=== PATIENT | male | born 1995 | race Caucasian/White ===

== ENCOUNTER 2018-02-12 17:23 | Emergency (ER) | payer BC, OTHER ==
[~2018-02-12] VITALS: Ht 175.3 cm; Wt 69.4 kg
--- NOTE | 2018-02-12 17:39 | ED Cough/URI ---
General Stated Complaint: ABD PAIN FOR THE PAST 24HRS Source: patient Exam Limitations: no limitations History of Present Illness Date Seen by Provider: Feb 12, 2018 Time Seen by Provider: 17:36 Initial Comments To ER with c/o abdomen feeling "odd" intermittently since last night. No fever or chills, no nausea or vomiting, no bowel changes such as diarrhea or constipation. No dysuria. At this time, he states he has zero pain. He describes the pain as suprapubic, sharp and "comes and goes". He also states that he feels some discomfort in his low back. Timing/Duration: just prior to arrival, intermittent Severity/Quality: mild Allergies and Home Medications Patient Home Medication List Home Medication List Reviewed: Yes Review of Systems Constitutional: see HPI; No chills, No fever EENTM: see HPI Respiratory: no symptoms reported Cardiovascular: no symptoms reported Gastrointestinal: abdominal pain; No nausea, No vomiting Genitourinary: no symptoms reported Musculoskeletal: no symptoms reported Skin: no symptoms reported Psychiatric/Neurological: No Symptoms Reported Hematologic/Lymphatic: No Symptoms Reported Immunological/Allergic: no symptoms reported Past Urkrrti-Jdafam-Bfxvwu Hx Patient Social History Recent Foreign Travel: Yes ([place],[facility]) Contact w/Someone Who Travel: Yes Physical Exam Vital Signs Vital Signs - First Documented 02/12/18 17:29 Temp 97.7 Pulse 80 Resp 17 B/P (MAP) 105/70 (82) O2 Delivery Room Air Capillary Refill : General Appearance: WD/WN, no apparent distress Eyes: Bilateral Eye Normal Inspection, Bilateral Eye PERRL, Bilateral Eye EOMI HEENT: PERRL/EOMI, normal ENT inspection Neck: non-tender, full range of motion Respiratory: no respiratory distress, no accessory muscle use Cardiovascular: regular rate, rhythm, no murmur Gastrointestinal: normal bowel sounds, non tender, soft; No abnormal bowel sounds, No distended, No guarding, No rebound, No tenderness Neurologic/Psychiatric: alert, normal mood/affect, oriented x 3 Skin: normal color Progress/Results/Core Measures Suspected Sepsis SIRS Temperature: Pulse: Respiratory Rate: Laboratory Tests 02/12/18 17:36: White Blood Count 7.1 Blood Pressure / Mean: Laboratory Tests 02/12/18 17:36: Creatinine 0.94, Platelet Count 234, Total Bilirubin 2.0H Results/Orders Lab Results Laboratory Tests Test 02/12/18 17:36 02/12/18 17:45 Range/Units White Blood Count 7.1 4.3-11.0 10^3/uL Red Blood Count 5.17 4.35-5.85 10^6/uL Hemoglobin 15.4 13.3-17.7 G/DL Hematocrit 43 40-54 % Mean Corpuscular Volume 83 80-99 FL Mean Corpuscular Hemoglobin 30 25-34 PG Mean Corpuscular Hemoglobin Concent 36 32-36 G/DL Red Cell Distribution Width 13.0 10.0-14.5 % Platelet Count 234 130-400 10^3/uL Mean Platelet Volume 11.4 H 7.4-10.4 FL Neutrophils (%) (Auto) 58 42-75 % Lymphocytes (%) (Auto) 35 12-44 % Monocytes (%) (Auto) 6 0-12 % Eosinophils (%) (Auto) 1 0-10 % Basophils (%) (Auto) 0 0-10 % Neutrophils # (Auto) 4.1 1.8-7.8 X 10^3 Lymphocytes # (Auto) 2.5 1.0-4.0 X 10^3 Monocytes # (Auto) 0.4 0.0-1.0 X 10^3 Eosinophils # (Auto) 0.1 0.0-0.3 10^3/uL Basophils # (Auto) 0.0 0.0-0.1 10^3/uL Sodium Level 141 135-145 MMOL/L Potassium Level 3.8 3.6-5.0 MMOL/L Chloride Level 105 98-107 MMOL/L Carbon Dioxide Level 24 21-32 MMOL/L Anion Gap 12 5-14 MMOL/L Blood Urea Nitrogen 14 7-18 MG/DL Creatinine 0.94 0.60-1.30 MG/DL Estimat Glomerular Filtration Rate > 60 BUN/Creatinine Ratio 15 Glucose Level 111 H 70-105 MG/DL Calcium Level 9.4 8.5-10.1 MG/DL Total Bilirubin 2.0 H 0.1-1.0 MG/DL Aspartate Amino Transf (AST/SGOT) 25 5-34 U/L Alanine Aminotransferase (ALT/SGPT) 13 0-55 U/L Alkaline Phosphatase 73 40-136 U/L C-Reactive Protein High Sensitivity 0.02 0.00-0.50 MG/DL Total Protein 7.5 6.4-8.2 GM/DL Albumin 4.8 H 3.2-4.5 GM/DL Lipase 46 8-78 U/L Urine Color YELLOW Urine Clarity CLEAR Urine pH 7 5-9 Urine Specific [place] 1.010 L 1.016-1.022 Urine Protein NEGATIVE NEGATIVE Urine Glucose (UA) NEGATIVE NEGATIVE Urine Ketones NEGATIVE NEGATIVE Urine Nitrite NEGATIVE NEGATIVE Urine Bilirubin NEGATIVE NEGATIVE Urine Urobilinogen NORMAL NORMAL MG/DL Urine Leukocyte Esterase 1+ H NEGATIVE Urine RBC (Auto) NEGATIVE NEGATIVE Urine RBC NONE /HPF Urine WBC 0-2 /HPF Urine Squamous Epithelial Cells RARE /HPF Urine Renal Epithelial Cells NONE /HPF Urine Crystals NONE /LPF Urine Bacteria TRACE /HPF Urine Casts NONE /LPF Urine Mucus SMALL H /LPF Urine Culture Indicated NO My Orders Orders - HOLLIS SHIPMAN APRN Cbc With Automated Diff (02/12/18 17:34) Comprehensive Metabolic Panel (02/12/18 17:34) Ua Culture If Indicated (02/12/18 17:34) Lipase (02/12/18 17:34) Iv [place]-Insert (Order) (02/12/18 17:34) Hs C Reactive Protein (02/12/18 18:06) Vital Signs/I&O 02/12/18 17:29 Temp 97.7 Pulse 80 Resp 17 B/P (MAP) 105/70 (82) O2 Delivery Room Air Capillary Refill : Departure Impression Primary Impression: Nonspecific abdominal pain Disposition: 01 HOME, SELF-CARE Condition: Stable Departure-Patient Inst. Decision time for Depature: 18:27 Referrals: NO,LOCAL PHYSICIAN (PCP/Family) Primary Care Physician Patient Instructions: NO INSTRUCTIONS GIVEN Add. Discharge Instructions: 1. Your labs are unremarkable in appearance. Return to the emergency room for any fevers, chills, worsening pain or other concerns. HOLLIS SHIPMAN APRN Feb 12, 2018 17:39
[2018-02-12 17:45] LABS: BASOPHILS % (AUTO) 0 % (0-10); EOSINOPHILS # (AUTO) 0.1 10^3/uL (0.0-0.3); EOSINOPHILS % (AUTO) 1 % (0-10); HEMATOCRIT 43 % (40-54); HEMOGLOBIN 15.4 G/DL (13.3-17.7); LYMPHOCYTES # (AUTO) 2.5 X 10^3 (1.0-4.0); LYMPHOCYTES % (AUTO) 35 % (12-44); MEAN CORPUSCULAR HEMOGLOBIN 30 PG (25-34); MEAN CORPUSCULAR HGB CONC 36 G/DL (32-36); MEAN CORPUSCULAR VOLUME 83 FL (80-99); MEAN PLATELET VOLUME 11.4 FL (7.4-10.4); MONOCYTES # (AUTO) 0.4 X 10^3 (0.0-1.0); MONOCYTES % (AUTO) 6 % (0-12); NEUTROPHILS # (AUTO) 4.1 X 10^3 (1.8-7.8); NEUTROPHILS % (AUTO) 58 % (42-75); PLATELET COUNT 234 10^3/uL (130-400); RED BLOOD COUNT 5.17 10^6/uL (4.35-5.85); WHITE BLOOD COUNT 7.1 10^3/uL (4.3-11.0)
[2018-02-12 17:50] LABS: BILIRUBIN,URINE NEGATIVE (NEGATIVE); CLARITY,URINE CLEAR; COLOR,URINE YELLOW; GLUCOSE, URINE (UA) NEGATIVE (NEGATIVE); KETONES,URINE NEGATIVE (NEGATIVE); LEUKOCYTE ESTERASE ,URINE 1+ (NEGATIVE); NITRITE,URINE NEGATIVE (NEGATIVE); PH,URINE 7 (5-9); PROTEIN,URINE NEGATIVE (NEGATIVE); UROBILINOGEN,URINE NORMAL (NORMAL)
[2018-02-12 18:00] LABS: BACTERIA,URINE TRACE /HPF; SQUAMOUS EPITHELIAL CELL,UR RARE /HPF; WBC,URINE 0-2 /HPF
[2018-02-12 18:05] LABS: ALANINE AMINOTRANSFERASE 13 U/L (0-55); ALBUMIN 4.8 GM/DL (3.2-4.5); ALKALINE PHOSPHATASE 73 U/L (40-136); BUN/CREATININE RATIO 15; CALCIUM 9.4 MG/DL (8.5-10.1); CARBON DIOXIDE 24 MMOL/L (21-32); CHLORIDE 105 MMOL/L (98-107); CREATININE SERUM 0.94 MG/DL (0.60-1.30); GFR ESTIMATED > 60; GLUCOSE 111 MG/DL (70-105); LIPASE 46 U/L (8-78); POTASSIUM 3.8 MMOL/L (3.6-5.0); SODIUM 141 MMOL/L (135-145); TOTAL PROTEIN 7.5 GM/DL (6.4-8.2)
[2018-02-12 18:35] VITALS: BP 108/72
== END 2018-02-12 18:35 | disposition home or self-care (01) ==
LOC: ER 17:26
DX: R10.30 Lower abdominal pain, unspecified (principal)
CPT/HCPCS: 36415; 80053; 81000; 83690; 85025; 86141

== ENCOUNTER 2020-07-10 15:48 | Emergency (ER) | payer BC ==
[~2020-07-10] VITALS: Ht 175 cm; Wt 79.3 kg
[2020-07-10] MEDS ORDERED: ONDANSETRON 4 MG/2 ML (SDV) Z0FRAN IVP ONE (16:15)
[2020-07-10] MEDS ORDERED: NS IV 1000 ML 1,000 ML IV SCH (16:15)
--- NOTE | 2020-07-10 16:18 | ED General ---
General Chief Complaint: General Problems/Pain Stated Complaint: CHILLS;NAUSEA;FATIGUE;SOA Source of Information: Patient Exam Limitations: No Limitations History of Present Illness Date Seen by Provider: Jul 10, 2020 Time Seen by Provider: 16:15 Initial Comments To ER with chills nausea fatigue vomiting since awakening this morning. Also complains of "sensitive body". He has not had any measured fever at any time. Timing/Duration: 1-2 Days Severity: Moderate Associated Systoms: Cough, Headaches, Shortness of Air, Weakness Allergies and Home Medications Allergies Coded Allergies: No Known Drug Allergies (Unverified , 07/10/20) Patient Home Medication List Home Medication List Reviewed: Yes Review of Systems Review of Systems Constitutional: see HPI, chills, fever EENTM: see HPI Respiratory: no symptoms reported Cardiovascular: no symptoms reported Genitourinary: no symptoms reported Musculoskeletal: no symptoms reported Skin: no symptoms reported Psychiatric/Neurological: No Symptoms Reported Hematologic/Lymphatic: No Symptoms Reported Immunological/Allergic: no symptoms reported Past Gimhsqb-Mgvfcm-Qbhvpj Hx Patient Social History 2nd Hand Smoke Exposure: No Recent Foreign Travel: No Contact w/Someone Who Travel: No Recent Hopitalizations: No Seasonal Allergies Seasonal Allergies: No Past Medical History Surgeries: No Respiratory: No Cardiac: No Neurological: No Genitourinary: No Gastrointestinal: No Musculoskeletal: No Endocrine: No HEENT: No Cancer: No Psychosocial: Yes Depression Integumentary: No Blood Disorders: No Adverse Reaction/Blood Tranf: No Physical Exam Vital Signs Vital Signs - First Documented 07/10/20 16:04 Temp 37.4 Pulse 120 Resp 18 B/P (MAP) 126/61 (82) Pulse Ox 96 O2 Delivery Room Air Capillary Refill : Height, Weight, BMI Height: 5'9.00" Weight: 153lbs. oz. 69.297987cw; BMI Method:Stated General Appearance: No Apparent Distress, WD/WN Eyes: Bilateral Eye Normal Inspection, Bilateral Eye PERRL, Bilateral Eye EOMI HEENT: PERRL/EOMI, TMs Normal Neck: Full Range of Motion, Normal Inspection Respiratory: Lungs Clear, Normal Breath Sounds, No Accessory Muscle Use, No Respiratory Distress, Other (Lungs clear oxygen 99% room air heart rate little h igh at 115-1 20.) Gastrointestinal: Normal Bowel Sounds, Non Tender, Soft Extremity: Normal Capillary Refill, Normal Inspection Neurologic/Psychiatric: Alert, Oriented x3 Skin: Normal Color, Warm/Dry Progress/Results/Core Measures Suspected Sepsis SIRS Temperature: Pulse: Respiratory Rate: Laboratory Tests 07/10/20 16:14: White Blood Count 16.5H Blood Pressure / Mean: Laboratory Tests 07/10/20 16:14: Creatinine 1.16, Platelet Count 200, Total Bilirubin 2.6H Results/Orders Lab Results Laboratory Tests Test 07/10/20 16:14 07/10/20 16:20 07/10/20 17:14 Range/Units White Blood Count 16.5 H 4.3-11.0 10^3/uL Red Blood Count 5.31 4.30-5.52 10^6/uL Hemoglobin 15.5 13.3-17.7 g/dL Hematocrit 44 40-54 % Mean Corpuscular Volume 83 80-99 fL Mean Corpuscular Hemoglobin 29 25-34 pg Mean Corpuscular Hemoglobin Concent 35 32-36 g/dL Red Cell Distribution Width 12.5 10.0-14.5 % Platelet Count 200 130-400 10^3/uL Mean Platelet Volume 11.8 9.0-12.2 fL Immature Granulocyte % (Auto) 0 % Neutrophils (%) (Auto) 86 H 42-75 % Lymphocytes (%) (Auto) 6 L 12-44 % Monocytes (%) (Auto) 7 0-12 % Eosinophils (%) (Auto) 0 0-10 % Basophils (%) (Auto) 0 0-10 % Neutrophils # (Auto) 14.1 H 1.8-7.8 10^3/uL Lymphocytes # (Auto) 1.1 1.0-4.0 10^3/uL Monocytes # (Auto) 1.2 H 0.0-1.0 10^3/uL Eosinophils # (Auto) 0.0 0.0-0.3 10^3/uL Basophils # (Auto) 0.0 0.0-0.1 10^3/uL Immature Granulocyte # (Auto) 0.1 0.0-0.1 10^3/uL Neutrophils % (Manual) 81 % Lymphocytes % (Manual) 5 % Monocytes % (Manual) 7 % Eosinophils % (Manual) 1 % Basophils % (Manual) 0 % Band Neutrophils 3 % Reactive Lymphocytes 3 % Blood Morphology Comment NORMAL Sodium Level 137 135-145 MMOL/L Potassium Level 3.9 3.6-5.0 MMOL/L Chloride Level 100 98-107 MMOL/L Carbon Dioxide Level 27 21-32 MMOL/L Anion Gap 10 5-14 MMOL/L Blood Urea Nitrogen 13 7-18 MG/DL Creatinine 1.16 0.60-1.30 MG/DL Estimat Glomerular Filtration Rate > 60 BUN/Creatinine Ratio 11 Glucose Level 120 H 70-105 MG/DL Calcium Level 10.1 8.5-10.1 MG/DL Corrected Calcium 8.5-10.1 MG/DL Total Bilirubin 2.6 H 0.1-1.0 MG/DL Aspartate Amino Transf (AST/SGOT) 25 5-34 U/L Alanine Aminotransferase (ALT/SGPT) 16 0-55 U/L Alkaline Phosphatase 73 40-136 U/L C-Reactive Protein High Sensitivity 1.80 H 0.00-0.50 MG/DL Total Protein 8.2 6.4-8.2 GM/DL Albumin 4.8 H 3.2-4.5 GM/DL Urine Color YELLOW Urine Clarity CLEAR Urine pH 8.0 5-9 Urine Specific [place] 1.025 H 1.016-1.022 Urine Protein NEGATIVE NEGATIVE Urine Glucose (UA) NEGATIVE NEGATIVE Urine Ketones 1+ H NEGATIVE Urine Nitrite NEGATIVE NEGATIVE Urine Bilirubin NEGATIVE NEGATIVE Urine Urobilinogen 0.2 < = 1.0 MG/DL Urine Leukocyte Esterase NEGATIVE NEGATIVE Urine RBC (Auto) NEGATIVE NEGATIVE Urine RBC NONE /HPF Urine WBC NONE /HPF Urine Squamous Epithelial Cells RARE /HPF Urine Crystals NONE /LPF Urine Bacteria TRACE /HPF Urine Casts NONE /LPF Urine Mucus MODERATE H /LPF Urine Culture Indicated NO Micro Results Microbiology 07/10/20 Influenza Types A,B Antigen ([place]) - Final, Complete My Orders Orders - HOLLIS SHIPMAN [employer] Cbc With Automated Diff (07/10/20 16:10) Comprehensive Metabolic Panel (07/10/20 16:10) Ua Culture If Indicated (07/10/20 16:10) Ed Iv/Invasive Line Start (07/10/20 16:10) Hs C Reactive Protein (07/10/20 16:10) Chest 1 View, Ap/Pa Only (07/10/20 16:10) Coronavirus Sars-Cov-2 So 2018 (07/10/20 16:10) Influenza A And B Antigens (07/10/20 16:10) Ns Iv 1000 Ml (Sodium Chloride 0.9%) (07/10/20 16:15) Ondansetron Injection (Zofran Injectio (07/10/20 16:15) Manual Differential (07/10/20 16:14) Lactated Ringers (Lr 1000 Ml Iv Solution (07/10/20 17:30) Medications Given in ED Current Medications Medications Dose Ordered Sig/Julia Route Start Time Stop Time Status Last Admin Dose Admin Ondansetron HCl 8 mg ONCE ONCE IVP 07/10/20 16:15 07/10/20 16:16 DC 07/10/20 16:28 8 MG Vital Signs/I&O 07/10/20 16:04 Temp 37.4 Pulse 120 Resp 18 B/P (MAP) 126/61 (82) Pulse Ox 96 O2 Delivery Room Air Capillary Refill : Diagnostic Imaging Diagonstic Imaging: Xray Plain Films/CT/US/NM/MRI: chest Comments NAME: MICHI KLINE [facility] REC#: [id number] PT STATUS: REG ER : 1995 PHYSICIAN: HOLLIS SHIPMAN APRN ADMIT DATE: 07/10/20/ER Signed Date of Exam:07/10/20 CHEST 1 VIEW, AP/PA ONLY EXAMINATION: Chest 1 view HISTORY: malaise COMPARISON: None available. FINDINGS: Heart size and pulmonary vasculature are normal. The lungs are clear without consolidation, pleural effusion, or pneumothorax. The osseous structures are intact. IMPRESSION: 1. No acute radiographic abnormality in the chest. Dictated by: Dictated on workstation # [id number] Dict: 07/10/201657 Trans: 07/10/201657 [facility] [id number] Interpreted by: ARON WALTON DO Electronically signed by: ARON WALTON DO 07/10/201657 Departure Communication (Admissions) I suspect the leukocytosis and tachycardia is a stress response as he has been vomiting and is likely a bit dry. His urine specific gravity is elevated with 1+ ketones. No focal normal pain. Secondary to IV fluids infusing now. Impression Primary Impression: Leukocytosis Additional Impressions: Nausea & vomiting Body aches Disposition: 01 HOME, SELF-CARE Condition: Stable Departure-Patient Inst. Decision time for Depature: 18:41 Referrals: NO,LOCAL PHYSICIAN (PCP/Family) Primary Care Physician Patient Instructions: Nausea and Vomiting, Adult (DC) Add. Discharge Instructions: 1. Return to ER for any concerns 2. Follow up with your doctor next week. Stay quarantined until COVID results are back (should be tomorrow). Use the nausea medication as directed. All discharge instructions reviewed with patient and/or family. Voiced understanding. Work/School Note: Work Release Form Date Seen in the Emergency Department: Jul 10, 2020 Return to Work: Jul 12, 2020 Copy Copies To 1: MIROSLAVA CALLES MD, PETER J APRN Jul 10, 2020 16:18
[2020-07-10 16:28] LABS: BASOPHILS % (AUTO) 0 % (0-10); EOSINOPHILS % (AUTO) 0 % (0-10); HEMATOCRIT 44 % (40-54); HEMOGLOBIN 15.5 g/dL (13.3-17.7); LYMPHOCYTES # (AUTO) 1.1 10^3/uL (1.0-4.0); LYMPHOCYTES % (AUTO) 6 % (12-44); MEAN CORPUSCULAR HEMOGLOBIN 29 pg (25-34); MEAN CORPUSCULAR HGB CONC 35 g/dL (32-36); MEAN CORPUSCULAR VOLUME 83 fL (80-99); MEAN PLATELET VOLUME 11.8 fL (9.0-12.2); MONOCYTES # (AUTO) 1.2 10^3/uL (0.0-1.0); MONOCYTES % (AUTO) 7 % (0-12); NEUTROPHILS # (AUTO) 14.1 10^3/uL (1.8-7.8); NEUTROPHILS % (AUTO) 86 % (42-75); PLATELET COUNT 200 10^3/uL (130-400); WHITE BLOOD COUNT 16.5 10^3/uL (4.3-11.0)
[2020-07-10 16:42] LABS: BAND NEUTROPHILS 3 %; LYMPHOCYTES % (MANUAL) 5 %; MONOCYTES % (MANUAL) 7 %; NEUTROPHILS % (MANUAL) 81 %
[2020-07-10 16:43] LABS: BASOPHILS % (MANUAL) 0 %; EOSINOPHILS % (MANUAL) 1 %; RBC MORPH NORMAL; REACTIVE LYMPHOCYTES 3 %
[2020-07-10 16:47] LABS: ALBUMIN 4.8 GM/DL (3.2-4.5); CHLORIDE 100 MMOL/L (98-107); POTASSIUM 3.9 MMOL/L (3.6-5.0); SODIUM 137 MMOL/L (135-145)
[2020-07-10 16:49] LABS: CALCIUM 10.1 MG/DL (8.5-10.1)
[2020-07-10 16:50] LABS: GLUCOSE 120 MG/DL (70-105); TOTAL PROTEIN 8.2 GM/DL (6.4-8.2)
[2020-07-10 16:51] LABS: CARBON DIOXIDE 27 MMOL/L (21-32)
[2020-07-10 16:52] LABS: BILIRUBIN,TOTAL 2.6 MG/DL (0.1-1.0)
[2020-07-10 16:53] LABS: ALKALINE PHOSPHATASE 73 U/L (40-136)
[2020-07-10 16:54] LABS: CREATININE SERUM 1.16 MG/DL (0.60-1.30); GFR ESTIMATED > 60
[2020-07-10 16:55] LABS: BUN/CREATININE RATIO 11
[2020-07-10 16:56] LABS: ALANINE AMINOTRANSFERASE 16 U/L (0-55)
--- NOTE | 2020-07-10 16:59 | Diagnostic Imaging Report ---
EXAMINATION: Chest 1 view HISTORY: malaise COMPARISON: None available. FINDINGS: Heart size and pulmonary vasculature are normal. The lungs are clear without consolidation, pleural effusion, or pneumothorax. The osseous structures are intact. IMPRESSION: 1. No acute radiographic abnormality in the chest. Dictated by: Dictated on workstation # [id number]
[2020-07-10 17:21] LABS: BILIRUBIN,URINE NEGATIVE (NEGATIVE); CLARITY,URINE CLEAR; COLOR,URINE YELLOW; GLUCOSE, URINE (UA) NEGATIVE (NEGATIVE); KETONES,URINE 1+ (NEGATIVE); LEUKOCYTE ESTERASE ,URINE NEGATIVE (NEGATIVE); NITRITE,URINE NEGATIVE (NEGATIVE); PROTEIN,URINE NEGATIVE (NEGATIVE)
[2020-07-10 17:26] LABS: BACTERIA,URINE TRACE /HPF; SQUAMOUS EPITHELIAL CELL,UR RARE /HPF
[2020-07-10] MEDS ORDERED: LACTATED RINGERS 1,000 ML IV SCH (17:30)
[2020-07-10] MEDS ORDERED: RX-ONDANSETRON 4 MG ODT (ZOFRAN) PPK #4 PO STA (18:42)
[2020-07-10 18:50] VITALS: BP 118/42
== END 2020-07-10 18:50 | disposition home or self-care (01) ==
LOC: EDUNIT# 15:48 → ER 15:49
DX: D72.829 Elevated white blood cell count, unspecified (principal); R11.2 Nausea with vomiting, unspecified; R52 Pain, unspecified; Z20.828 Contact with and (suspected) exposure to other viral communicable diseases
CPT/HCPCS: 71045; 80053; 81000; 85007; 85027; 86141; 87804; 99284; U0002; 36415; 87635